=== PATIENT | female | born 1930 | race Caucasian/White ===

== ENCOUNTER 2016-08-05 17:07 | Emergency (ER) | payer MEDICARE ==
[~2016-08-05 17:07] MED LIST: ACET500CAP PO; AMB5 PO; ATV.5 PO; ATV1 PO; C5 PO; CEFT5 PO; COMBIVENT RESPIM4 GM INH; COUMADIN6 MG PO; DRAMAMINE25 MG PO; DSS PO; FLORASTOR250 MG PO; L20 PO; LOP25 PO; LORTAB 5 PO; MACROBID PO; MACRODANTIN 10100 MG PO; NATURA2 OPH; NEXIUM40 PO; NORCO1 TA1 PO; NORCO1 TA2 PO; NORV25 PO; NORV5 PO; OS500+D PO; OTC STOOL SOFTENER PO; P10 PO; PEP20 PO; PLAQ200B PO; PR25 PO; PRADAXA150 MG PO; PROTONIX PO; STOOL SOFTEN100 MG PO; TEARS PURE OPH; VIB100 PO; VICODINTAB PO; XALAT OPH; ZOFRAN4 PO; ZYRTEC ALLGY10 MG PO; [UNRECOGNIZED DRUG - OTHER] PO; [UNRECOGNIZED DRUG - REMARK] TOP
== END 2016-08-05 18:00 | disposition home or self-care (01) ==
LOC: ER 17:07
DX: M54.5 Low back pain (principal); G89.29 Other chronic pain; R53.1 Weakness; I10 Essential (primary) hypertension; Z88.0 Allergy status to penicillin; Z88.2 Allergy status to sulfonamides; Z91.013 Allergy to seafood; Z88.6 Allergy status to analgesic agent; Z88.1 Allergy status to other antibiotic agents; Z91.018 Allergy to other foods; Z79.52 Long term (current) use of systemic steroids; Z79.899 Other long term (current) drug therapy
CPT/HCPCS: 99283; A9270-GY